=== PATIENT | female | born 1975 | race Caucasian/White ===

== ENCOUNTER 2018-11-18 09:25 | Inpatient (IN) | payer OTHER ==
[2018-11-13 16:06] VITALS: BMI 21.7
--- NOTE | 2018-11-17 09:35 | HP ---
Admitting History and Physical - Primary Care Physician PCP: Barbara Rutherford - Admission Chief Complaint: right breast cancer History of Present Illness: Patient is a 43 yo female with multiple medical issues and institutionalized in a care home, who presents with a h/o of invasive ductal carcinoma that was dxed via core bx of the retroareolar aspect of the right breast (05/2018) ER/IN/ Her2 negative. Patient also had a skin core bx which was c/w dermal invasion. CT scan done 05/2018 of chest abdomen and pelvis was negative for metastatic dz. Patient underwent neoadjuvent chemo and is now presenting for right mastectomy, snbx possible andx without reconstruction. 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) Endocrine: Yes: Hypothyroidism - Smoking History Smoking history: Never smoked Have you smoked in the past 12 months: No - Alcohol/Substance Use Hx Alcohol Use: No Home Medications - Allergies Allergies/Adverse Reactions: Allergies Allergy/AdvReac Type Severity Reaction Status Date / Time bee venom protein (honey bee) Allergy Severe Swelling Verified 11/12/18 18:49 sulfacetamide Allergy Mild Rash Verified 11/12/18 18:49 [From Sulfamide] Sulfa (Sulfonamide Allergy Verified 11/12/18 18:49 Antibiotics) - Home Medications Home Medications: Ambulatory Orders Acetaminophen 650 mg PO HS 11/13/18 Desmopressin Acetate 0.2 mg PO HS 11/13/18 Lactase 3 tab PO TID 11/13/18 Levothyroxine [Synthroid -] 25 mcg PO DAILY 11/13/18 Loratadine 10 mg PO HS 11/13/18 Mesalamine [Apriso] 1.5 gm PO AM 11/13/18 Multivitamin [Multiple Vitamins] 1 each PO DAILY 11/13/18 Olanzapine 10 mg PO DAILY 11/13/18 Polyethylene Glycol 3350 17 gm PO AM 11/13/18 Simethicone [Gas-X] 125 mg PO BID 11/13/18 Tolterodine Tartrate [Tolterodine Tartrate ER] 4 mg PO DAILY 11/13/18 Topiramate 50 mg PO BID 11/13/18 Family Disease History - Family Disease History Family Disease History: CA: Grandparent (maternal GF-bladder cancer, mat GM- lung cancer, mat GGM-uterine cancer ) Physical Examination Constitutional: Yes: Well Nourished Breast(s): Yes: Other (Right breast nipple retraction and skin thickening noted with patchy erythema around nipple. No other suspicious masses or adenopathy noted bilaterally.) Problem List - Problems (1) Breast cancer, right Code(s): C50.911 - MALIGNANT NEOPLASM OF UNSP SITE OF RIGHT FEMALE BREAST Qualifiers: Breast location: central portion of breast Estrogen receptor status: negative Patient sex: female Qualified Code(s): C50.111 - Malignant neoplasm of central portion of right female breast; Z17.1 - Estrogen receptor negative status [ER-]
--- NOTE | 2018-11-17 09:58 | HP ---
History & Physical Update - History History: Change (see notes) (PSHx CCY cleft palate repair perforated ear drum repair knee surgery) - Physical Physical: No Change - Assessment Assessment: No Change - Plan Plan: No Change
[2018-11-18] MEDS ORDERED: diazePAM 5 MG TABLET ONE (09:38)
[2018-11-18] MEDS: diazePAM 5 MG TABLET PO ONE (10:00)
[2018-11-18] MEDS ORDERED: PROPOFOL 20 ML ONE (11:57)
[2018-11-18] MEDS ORDERED: LIDOCAINE HCL/PF 2% SDV 5ML VIAL ONE (11:57)
[2018-11-18] MEDS ORDERED: KETOROLAC TROMETHAMINE 30 MG/1 ML VIAL ONE (11:57)
[2018-11-18] MEDS ORDERED: ROCURONIUM BROMIDE 50 MG/5 ML VIAL ONE (11:57)
[2018-11-18] MEDS ORDERED: DEXAMETHASONE SOD PHOSPHATE 4 MG/1 ML VIAL ONE (13:35)
[2018-11-18] MEDS ORDERED: ONDANSETRON 4 MG/2 ML VIAL ONE (13:35)
[2018-11-18] MEDS ORDERED: GUM MASTIC/STORAX/MSAL/ALCOHOL 1 DRP DROPSBTL MC ONE (14:07)
[2018-11-18] MEDS ORDERED: ONDANSETRON 4 MG/2 ML VIAL IVPUSH PRN ×2 (14:39→14:40)
[2018-11-18] MEDS ORDERED: ACETAMINOPHEN 325 MG TABLET (FP) PO PRN ×2 (14:39→14:54)
[2018-11-18] MEDS ORDERED: LORATADINE 10 MG TABLET PO PRN (14:40)
[2018-11-18] MEDS ORDERED: DEXTROSE 5%-0.45% SALINE 1,000 ML IV SCH (14:45)
[2018-11-18] MEDS ORDERED: LACTATED RINGERS SOLUTION 1,000 ML IV SCH (14:45)
[2018-11-18] MEDS ORDERED: oxyCODONE HCL 5 MG TABLET PO PRN (14:54)
[2018-11-18] MEDS ORDERED: CEFAZOLIN 1 GM/D5W 1 GM/50 ML BAG IVPB SCH ×2 (15:00→15:15)
[2018-11-18] MEDS: CEFAZOLIN 1 GM/D5W 1 GM/50 ML BAG IVPB SCH (18:26)
[2018-11-18] MEDS: TOPIRAMATE 25 MG TABLET (FP) PO SCH (21:26)
[2018-11-18] MEDS ORDERED: LACTASE PO SCH (22:00)
[2018-11-18] MEDS ORDERED: SIMETHICONE 125 MG PO SCH (22:00)
[2018-11-18] MEDS ORDERED: DESMOPRESSIN ACETATE 0.2 MG TABLET PO SCH (22:00)
[2018-11-19] MEDS: CEFAZOLIN 1 GM/D5W 1 GM/50 ML BAG IVPB SCH ×2 (06:37)
[2018-11-19] MEDS ORDERED: LEVOTHYROXINE NA 25 MCG TABLET (FP) PO SCH (07:00)
[2018-11-19] MEDS ORDERED: POLYETHYLENE GLYCOL 3350 119 GM BTL PO SCH (07:00)
[2018-11-19] MEDS ORDERED: MESALAMINE 1.5 GM PO SCH (07:00)
--- NOTE | 2018-11-19 07:49 | OP ---
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 PROCEDURE: Right breast modified radical mastectomy with sentinel lymph node biopsy. ANESTHESIA: General intubated. ATTENDING SURGEON: Narendra Rutherford MD SUPERVISOR CONCRETE STONE FINISHING: IVAN Puri ESTIMATED BLOOD LOSS: Minimal. COMPLICATIONS: None. DESCRIPTION OF PROCEDURE: Patient was made aware of the risks and benefits of the procedure and consented. She was placed in the supine position. After general anesthesia was induced, the patient was intubated. The operative site was prepped and draped in the usual sterile fashion. Then, 2.5 mL of 1% isosulfan blue was locally infiltrated into the peritumoral tissues. After waiting approximately 10 minutes with gentle manual compression, a curvilinear incision was made at the right axilla using blunt and sharp dissection. Tissues were dissected down which revealed a cluster of blue lymph nodes and some firm lymph nodes. These were surgically excised and submitted for frozen section. While we waited for frozen section, an elliptical incision was made around the nipple and periareolar erythema. Using electrocautery, skin flaps were made superior to the clavicle, medial to the sternum, lateral to the latissimus dorsi, and inferiorly to the inframammary fold. Using electrocautery, the breast tissue was taken off the pectoralis muscle extending laterally and submitted with a short suture superior, long suture lateral. The frozen section reported as 2 of the lymph nodes suspicious for metastasis. Additional axillary tissue was then removed. Long thoracic nerve was identified and retracted medially, and the thoracodorsal trunk was identified and retracted laterally, and the tissues between the two were bluntly and sharply dissected away using electrocautery and medium-sized hemoclips. This was submitted as right axillary contents. The wound was copiously irrigated with normal saline. Hemostasis was maintained by electrocautery. Through inferior stab wounds, two drains were placed and sutured to the skin with 2-0 silk. Skin was then closed with interrupted 2-0 Vicryl followed by a running 3-0 Vicryl followed by a running subcuticular 4-0 Monocryl. Steri-Strips, sterile dressing, and a compression were then applied, and the patient, having tolerated the procedure well, was transferred to the recovery room in excellent condition. NARENDRA RUTHERFORD M.D. [id number]
[2018-11-19 08:06] LABS: HEMATOCRIT 28.3 % (32.4-45.2); HEMOGLOBIN 8.6 GM/dl (10.7-15.3); MCH 21.8 pg (25.7-33.7); MCHC 30.5 g/dl (32.0-36.0); MEAN CELL VOLUME 71.3 fl (80-96); MEAN PLT VOLUME 8.8 fl (7.5-11.1); PLATELET COUNT 458 K/MM3 (134-434); RBC 3.97 M/mm3 (3.60-5.2); RDW 18.2 % (11.6-15.6); WHITE BLOOD COUNT 7.1 K/mm3 (4.0-10.8)
[2018-11-19] MEDS ORDERED: CEFAZOLIN 1 GM/D5W 1 GM/50 ML BAG IVPB SCH (09:00)
--- NOTE | 2018-11-19 09:04 | PN ---
Progress Note, Physician Chief Complaint: Right breast cancer with axillary mets S/P right modified radical mastectomy POD #1 History of Present Illness: patient is eating no C/O's of pain, very comfortable ready for discharge back to facility per private aide - Current Medication List Current Medications: Active Medications Acetaminophen (Tylenol -) 650 mg PO Q4H PRN PRN Reason: FEVER Acetaminophen (Tylenol -) 325 mg PO Q6H PRN PRN Reason: PAIN 4-6 Last Admin: 11/19/18 06:37 Dose: 325 mg Desmopressin Acetate (Ddavp -) 0.2 mg PO HS MIRANDA Last Admin: 11/18/18 21:26 Dose: 0.2 mg Fentanyl (Sublimaze Injection -) 25 mcg IVPUSH [id number] PRN PRN Reason: PAIN-PACU ORDER X 4 DOSES ONLY Stop: 11/19/18 14:39 Heparin Sodium (Porcine) (Heparin -) 5,000 unit SQ BID [facility] Lactated Ringer's (Lactated Ringers Solution) 1,000 mls @ 75 mls/hr IV ASDIR MIRANDA Cefazolin Sodium (Ancef 1 Gm Premixed Ivpb -) 1 gm in 50 mls @ 100 mls/hr IVPB Q6H-IV MIRANDA Stop: 11/25/18 08:59 Dextrose/Sodium Chloride (D5-1/2ns -) 1,000 mls @ 100 mls/hr IV ASDIR MIRANDA Levothyroxine Sodium (Synthroid -) 25 mcg PO 0700 MIRANDA Last Admin: 11/19/18 06:37 Dose: 25 mcg Loratadine (Claritin -) 10 mg PO HS PRN PRN Reason: ALLERGIES Non-Formulary Medication (Lactase [Lactase]) 3 tab PO TID [facility] Non-Formulary Medication (Mesalamine [Apriso]) 1.5 gm PO AM [facility] Non-Formulary Medication (Simethicone [Gas-X]) 125 mg PO BID [facility] Olanzapine (Zyprexa -) 10 mg PO DAILY [facility] Ondansetron HCl (Zofran Injection) 4 mg IVPUSH Q6H PRN PRN Reason: NAUSEA AND/OR VOMITING Stop: 11/19/18 14:39 Ondansetron HCl (Zofran Injection) 4 mg IVPUSH Q6H PRN PRN Reason: NAUSEA AND/OR VOMITING Oxycodone HCl (Roxicodone -) 5 mg PO Q6H PRN PRN Reason: PAIN 4-6 Polyethylene Glycol (Miralax (For Daily Use) -) 17 gm PO AM [facility] Last Admin: 11/19/18 06:38 Dose: 17 gm Tolterodine Tartrate (Detrol La -) 4 mg PO DAILY [facility] Topiramate (Topamax -) 50 mg PO BID [facility] Last Admin: 11/18/18 21:26 Dose: 50 mg - Objective Vital Signs: Vital Signs Temperature 98.2 F 11/19/18 06:00 Pulse Rate 84 11/19/18 06:00 Respiratory Rate 11/19/18 06:00 Blood Pressure 141/37 L 11/19/18 06:00 O2 Sat by Pulse Oximetry (%) 99 11/19/18 06:00 Constitutional: Yes: No Distress Labs: CBC, BMP 11/19/18 07:20 Problem List - Problems (1) Breast cancer, right Code(s): C50.911 - MALIGNANT NEOPLASM OF UNSP SITE OF RIGHT FEMALE BREAST Qualifiers: Breast location: central portion of breast Estrogen receptor status: negative Patient sex: female Qualified Code(s): C50.111 - Malignant neoplasm of central portion of right female breast; Z17.1 - Estrogen receptor negative status [ER-] Assessment/Plan Patient is ready for discharge to facility and they are able to care for drains Tylenol prn cefadroxil BID for 10 days MATTIE drain training
[2018-11-19] MEDS ORDERED: PT OWN MED DRAWER 7, Y5N ONE (09:31)
[2018-11-19] MEDS: TOPIRAMATE 25 MG TABLET (FP) PO SCH (09:53)
[2018-11-19] MEDS ORDERED: TOLTERODINE TARTRATE LA 4 MG CAP.SR.24H (FP) PO SCH (10:00)
[2018-11-19] MEDS ORDERED: HEPARIN NA (PORCINE) 5,000 UNITS/ML 1ML VIAL SQ SCH (10:00)
[2018-11-19] MEDS ORDERED: OLANZapine 10 MG TABLET PO SCH (10:00)
[2018-11-19] MEDS: diazePAM 5 MG TABLET PO ONE (11:24)
--- NOTE | 2018-11-19 14:26 | PN ---
Progress Note (short form) - Note Progress Note: Post op day#1.S/P Right total mastectomy with sentinel LN biopsy and axillary dissection under GA uneventful.Patient stable and has smoe pain for which she is on medication.No any anesthesia related problem.Patient DC from the anesthesia care.
[2018-11-19 14:47] VITALS: BP 115/60; PULSE 72; TEMP 97.6
[2018-11-19] MEDS ORDERED: DESMOPRESSIN ACETATE 0.1 MG TABLET PO SCH (22:00)
--- NOTE | 2018-11-21 13:43 | PATH ---
Surgical Pathology Report Patient Name: HERACLIO KENT Med. Rec. #: [id number] /Age/Gender: 1975 (Age: 43) / F Account: [id number] Location: [facility] MED-SURG Taken: 11/18/2018 Received: 11/18/2018 Reported: 11/21/2018 Physicians: Barbara Rutherford M.D. Specimen(s) Received A: RIGHT AXILLARY SENTINEL NODES (FS) B: ADDITIONAL RIGHT AXILLARY SENTINEL NODES (FS) C: RIGHT BREAST MASTECTOMY D: RIGHT AXILLARY CONTENTS Clinical History Invasive Ca, neoadjuvant chemotherapy Intraoperative Consult Diagnosis A. Right axillary sentinel nodes, frozen section: Six lymph nodes, negative for metastatic carcinoma (0/6). Two lymph nodes show prominent fibrous scar and histiocytic reaction consistent with treatment effect. B. Additional right axillary sentinel nodes, frozen section: One lymph node, positive for metastatic carcinoma. One lymph node showing scattered highly atypical cells, suspicious for metastatic carcinoma. Yanna Levin M.D., 11/18/2018 Final Diagnosis A. lymph nodes, right axillary sentinel, excision (FS): One lymph node showing isolated tumor cells (itc) on cytokeratin (AE1/3) immunostain. Five lymph nodes, negative for metastatic carcinoma on H&E stained sections AND cytokeratin (AE1/3) IMMUNOstain. (See note). Note: Three lymph nodes show foci of fibrous scarring and histiocytic reaction, consistent with treated metastatic tumor. b. Lymph nodes, additional right axillary sentinel, excision (fs): Metastatic carcinoma, involving one of two lymph nodes (1/2); metastatic carcinoma extensively involves the lymph node with the largest focus of metastasis spanning 1.1 cm in greatest dimension (macrometastasis). (See note) extranodal extension is identified. Note: The atypical cells noted in the smaller lymph node on frozen section slides are no longer identified on permanent sections and cytokeratin (AE1/3) immunostain. C. breast, right, total mastectomy: Multiple scattered foci of residual invasive ductal carcinoma, poorly differentiated (tubule score: 3/3, nuclear grade: 3/3, mitotic score: 3/3, total score: 9/9; [place] grade 3) present in a background of dense hyalinizING fibrosis AND HISTIOCYTIC reaction, compatible with treated tumor bed tissue (spanning all four quadrants). invasive carcinoma COMPRISES APPROXIMATELY 30% OF THE TUMOR BED TISSUE, with the largest contiguous FOCUS of invasive carcinoma measuring up to 1.7 cm in greatest dimension, microscopically. Ductal carcinoma in situ (DCIS), solid type, high NUCLEAR grade, is present admixed with invasive carcinoma. Invasive carcinoma involves dermis of nipple and skin and INVADES epiDERMIS OF SKIN WITH ULCERATION. EXTENSIVE LYMPHOVASCULAR INVASION INCLUDING DERMAL lymphoVASCULAR INVASION is identified. Surgical Margins are uninvolved by carcinoma. Pathologic stage (yptnm): ypT4d ypN1a. (SEE NOTE) see also invasive carcinoma case summary below. Note: The "pT" stage is based on presence of dermal lymphovascular invasion in conjunction with clinical findings of inflammatory carcinoma. See also prior core biopsy (slide review case #: [id number] /outside institution case #: [id number] ; 05/07/18). D. axillary contents, right, dissection: eight lymph nodes, negative for metastatic carcinoma (0/8). Comments Breast Invasive Carcinoma: Surgical Pathology Case Summary (Based on AJCC TNM 8 th edition) Procedure _X_ Total mastectomy (with axillary lymph node dissection) Specimen Laterality _X_ Right Tumor Size _X_ Greatest dimension of largest invasive focus >1 mm (millimeters): 17 mm Histologic Type _X_ Invasive carcinoma of no special type (ductal, not otherwise specified) Histologic Grade (Lisbeth Histologic Score) Glandular (Acinar)/Tubular Differentiation _X_ Score 3 (<10% of tumor area forming glandular/tubular structures) Nuclear Pleomorphism _X_ Score 3 Mitotic Rate _X_ Score 3 Overall Grade _X_ Grade 3 (scores of 8 or 9) Tumor Focality _X_ Multiple foci of invasive carcinoma Number of foci: cannot be determined Sizes of individual foci: ~ 17 mm Ductal Carcinoma In Situ (DCIS) _X_ DCIS is present in specimen _X_ Negative for extensive intraductal component (EIC) Tumor Extension (required only if the structures are present and involved) Skin _X_ Invasive carcinoma directly invades into the dermis or epidermis with skin ulceration (classified as T4b) Margins Invasive Carcinoma Margins _X_ Uninvolved by invasive carcinoma _X_ Cannot be determined DCIS Margins _X_ Uninvolved by DCIS _X_ Cannot be determined: Regional Lymph Nodes _X_ Involved by tumor cells Number of Lymph Nodes with Macrometastases (>2 mm): 1 Number of Lymph Nodes with Micrometastases (>0.2 mm to 2 mm and/or >200 cells): 0 Number of Lymph Nodes with Isolated Tumor Cells (=0.2 mm and =200 cells): 1 Size of Largest Metastatic Deposit (millimeters): 11 mm Extranodal Extension: _X_ Present Treatment Effect Treatment Effect in the Breast _X_ Probable or definite response to presurgical therapy in the invasive carcinoma Treatment Effect in the Lymph Nodes _X_ Probable or definite response to presurgical therapy in metastatic carcinoma Lymphovascular Invasion _X_ Present Pathologic Stage Classification (pTNM, AJCC 8th Edition) Primary Tumor (Invasive Carcinoma) (pT) _X_ pT4d: Inflammatory carcinoma Regional Lymph Nodes (pN) Category (pN) _X_ ypN1a: Metastases in 1 to 3 axillary lymph nodes, at least 1 metastasis larger than 2.0 mm Biomarker Studies Results of ER and UT studies performed on this specimen (block C11) at [facility] are as follows: ER (clone [id number] mouse monoclonal antibody by [employer]): 0 % nuclear staining (negative). UT (clone16 mouse monoclonal antibody by [employer]): 0 % nuclear staining (negative). Results of Her2 and Ki67 studies will be reported separately in an addendum. Positive and negative controls (internal if applicable) show appropriate results. Formalin fixation and cold ischemic times are within current ASCO/CAP recommendations for ER, UT and Her2 testing. Electronically Signed Sara Levin M.D. Addendum Reported: 11/24/2018 Addendum Diagnosis Results of Her2 (IHC) & Ki-67 studies performed on block C11 at [place], [place] ([id number]) are as follows: Her2 IHC (EP3 from [employer], formerly known as [id number], using [employer] Polymer Refine detection kit):0 (negative). Ki-67: ~90% (high proliferative index). Positive and negative controls (internal if applicable) show appropriate results. Sara Levin M.D. Gross Description A. Received fresh labeled "right axillary sentinel nodes," are 6 lymph nodes with attached adipose tissue ranging from 0.3-1.5 cm in greatest dimension. The largest lymph node is bisected arianna frozen section is performed on the lymph nodes. The frozen section residue is entirely submitted in 2 cassettes as follows: 1-largest bisected lymph node; 2-five small whole lymph nodes. B. Received fresh for frozen section labeled "additional right axillary sentinel nodes," are 2 lymph nodes with attached adipose tissue measuring 1.3 x 1.0 x 0.4 cm and 0.4 x 0.3 x 0.2 cm. The larger lymph node is inked and bisected. Frozen section is performed on the lymph nodes. The frozen section residue is entirely submitted in one cassette (one inked bisected lymph node and one whole lymph node). C. Received in formalin, labeled "right breast mastectomy," is a 392 gram, 14.0 x 12.0 x 5.5 cm. right mastectomy specimen with a short suture marking the superior aspect and a long suture marking the lateral aspect of the specimen, per the surgeon. The anterior surface displays a 13.5 x 7.5 cm yao, elliptical portion of skin with a 1.0 cm in diameter inverted nipple. There is a 0.6 cm in greatest dimension ulcerated lesion at the medial aspect of the skin. The deep margin is inked black and the anterior soft tissue margin is inked blue. The specimen is serially sectioned from lateral to medial. Sectioning reveals an 8.0 x 7.5 x 4.0 cm central focus of dense white fibrous tissue, spanning all 4 quadrants. The fibrous tissue displays multifocal smaller, indurated nodular foci in all 4 quadrants. Physician Internist sections are submitted in 20 cassettes as follows: 1-serially sectioned nipple; 2-subareolar shave; 3-5-upper outer quadrant; 6-10-lower outer quadrant; 11-13-upper inner quadrant; 14-15-lower inner quadrant; 19-56-xibpspvjfaru tissue; 18-anterior soft tissue margin; 19-skin with lesion; 20-deep margin. Time to formalin fixation: 2 minutes Total formalin fixation time: Approximately 29 hours. D. Received in formalin labeled "right axillary contents," is a 7.5 x 5.0 x 1.0 cm aggregate of yellow, lobulated adipose tissue. Sectioning reveals multiple yao lymph nodes measuring up to 1.7 cm in greatest dimension. Physician Internist sections are submitted in 8 cassettes as follows: 1-three whole lymph nodes; 2-3-one bisected lymph node each; 5-8-cpiqdxhvtr retention representative adipose tissue. 11/19/2018 [facility]/19/2018
== END 2018-11-19 14:30 | disposition home or self-care (01) | DRG 580 ==
LOC: FM/S 09:25
PROVIDERS: ADMIT Surgery Surgical Oncology; ATTEND Surgery Surgical Oncology
PROC: 07B50ZX Excision of Right Axillary Lymphatic, Open Approach, Diagnostic (ICD-10-PCS; principal; 2018-11-18 12:25)
PROC: 0HTT0ZZ Resection of Right Breast, Open Approach (ICD-10-PCS; 2018-11-18 12:25)
DX: C50.911 Malignant neoplasm of unspecified site of right female breast (principal); C77.3 Secondary and unspecified malignant neoplasm of axilla and upper limb lymph nodes; G80.9 Cerebral palsy, unspecified; E03.9 Hypothyroidism, unspecified; Q90.9 Down syndrome, unspecified
CPT/HCPCS: 36415; 84703; 85027; 88307-TC; 88331-TC; 88332; 94760; J1644